=== PATIENT | female | born 1955 | race African-American/Black ===

== ENCOUNTER 2021-04-05 08:48 | Outpatient (CLI) | payer MEDICARE | END 2021-04-05 08:49 | disposition home or self-care (01) | LOC: CSHCT 08:48 | PROVIDERS: ATTEND Internal Medicine Hematology & Oncology | DX: C25.4 Malignant neoplasm of endocrine pancreas (principal); C17.0 Malignant neoplasm of duodenum; R93.2 Abnormal findings on diagnostic imaging of liver and biliary tract; K63.89 Other specified diseases of intestine; R59.0 Localized enlarged lymph nodes; K86.81 Exocrine pancreatic insufficiency | CPT/HCPCS: 71260; 74177; 82565 ==

== ENCOUNTER 2021-07-18 09:54 | Outpatient (CLI) | payer MEDICARE | END 2021-07-18 09:55 | disposition home or self-care (01) | LOC: CSHCT 09:54 | PROVIDERS: ATTEND Internal Medicine Hematology & Oncology | DX: C25.4 Malignant neoplasm of endocrine pancreas (principal); C17.0 Malignant neoplasm of duodenum; K63.89 Other specified diseases of intestine; K31.89 Other diseases of stomach and duodenum | CPT/HCPCS: 74177; 82565 ==

== ENCOUNTER 2021-07-23 12:48 | Emergency (ER) | payer MEDICARE ==
[2021-07-23] MEDS ORDERED: Ondansetron PF 4 MG/2 ML Vial ONE (15:04)
[2021-07-23] MEDS ORDERED: Morphine 4 MG/ML VIAL ONE (15:04)
== END 2021-07-23 16:45 | disposition home or self-care (01) ==
LOC: CSHERS 12:48
DX: M25.511 Pain in right shoulder (principal); E11.9 Type 2 diabetes mellitus without complications; K21.9 Gastro-esophageal reflux disease without esophagitis; I10 Essential (primary) hypertension; F17.210 Nicotine dependence, cigarettes, uncomplicated; Z79.899 Other long term (current) drug therapy
CPT/HCPCS: 71045; 84484; 93005; 96374; 96375; J2270; J2405

== ENCOUNTER 2022-01-10 11:02 | Outpatient (CLI) | payer MEDICARE | END 2022-01-10 11:03 | disposition home or self-care (01) | LOC: CSHCT 11:02 | PROVIDERS: ATTEND Internal Medicine Hematology & Oncology | DX: C25.4 Malignant neoplasm of endocrine pancreas (principal); C17.0 Malignant neoplasm of duodenum | CPT/HCPCS: 71260; 74177; 82565 ==

== ENCOUNTER 2022-10-03 09:25 | Outpatient (CLI) | payer MEDICARE ==
[~2022-10-03 09:25] MED LIST: Iopamidol 300 61% 100 ML VIAL FS ONE
== END 2022-10-03 09:26 | disposition home or self-care (01) ==
LOC: CSHCT 09:25
PROVIDERS: ATTEND Internal Medicine Hematology & Oncology
DX: C25.4 Malignant neoplasm of endocrine pancreas (principal); C17.0 Malignant neoplasm of duodenum
CPT/HCPCS: 71260; 74177; 82565

== ENCOUNTER 2022-12-17 20:01 | Emergency (ER) | payer MEDICARE ==
[2022-12-17] MEDS ORDERED: Metoclopramide HCl 10 MG/2 ML VIAL ONE (21:21)
[2022-12-17] MEDS ORDERED: diphenhydrAMINE 50 MG/ML VIAL ONE (21:21)
[2022-12-17 21:27] LABS: #Eosinphils 0.1 10x3/uL (0.0-0.5); #Monocytes 0.5 10x3/uL (0.0-1.1); #Neutrophils 6.2 10x3/uL (1.5-8.4); %Basophils 0.3 % (0.0-2.0); %Eosinophils 0.5 % (0.0-6.0); %Lymphocytes 25.8 % (18.0-47.0); %Monocytes 5.9 % (0.0-10.0); %Neutrophils 67.3 % (40.0-75.0); Mean Corpuscular Hemoglobin 28.2 pg (27.0-33.0); Mean Corpuscular Volume 83.1 fl (81.6-98.3); Mean Platelet Volume 11.9 fl (7.4-10.4); Platelet Count 164 10x3/uL (150-450); RBC Distribution Width 13.6 % (11.5-14.5); Red Blood Cell (RBC) Count 4.25 10x6/uL (3.90-5.03); White Blood Cell (WBC) Count 9.2 10x3/uL (3.5-10.5)
[2022-12-17 21:43] LABS: Bilirubin Neg (Negative); Blood, Urine 10 (Negative); Clarity Clear (Clear); Glucose, Urine (Dipstick) Normal (Negative); Ketone, Urine Negative (Negative); Leukocyte 25 (Negative); Nitrite Negative (Negative); Protein, Urine (Dipstick) 30 mg/dl (Neg-Trace)
[2022-12-17 21:48] LABS: ALT (SGPT) Less than 6 U/L (8-55); AST (SGOT) 12 U/L (5-34); Albumin 3.8 g/dL (3.4-4.8); Alkaline Phosphatase 61 U/L (40-110); Anion Gap 12 mmol/L (10-20); BUN (Urea Nitrogen) 21 mg/dL (9.8-20.1); Bilirubin, Total 1.1 mg/dL (0.2-1.2); Calc. Creatinine Clearance 0 mL/min (70-130); Calcium 10.3 mg/dL (7.8-10.44); Carbon Dioxide 25 mmol/L (23-31); Chloride 104 mmol/L (98-107); Estimated GFR 27; Globulin 2.8 g/dL (2.4-3.5); Glucose 171 mg/dL (80-115); Magnesium 1.6 mg/dL (1.6-2.6); Protein, Total 6.6 g/dL (5.8-8.1); Sodium 138 mmol/L (136-145)
[2022-12-17 21:50] LABS: Bacteria/HPF 1+ HPF (None Seen)
[2022-12-17] MEDS ORDERED: Cephalexin 250 MG CAP ONE (23:01)
== END 2022-12-17 23:18 | disposition home or self-care (01) ==
LOC: CSHERS 20:01
DX: N17.9 Acute kidney failure, unspecified (principal); N39.0 Urinary tract infection, site not specified; I10 Essential (primary) hypertension; F17.210 Nicotine dependence, cigarettes, uncomplicated
CPT/HCPCS: 36415; 70450; 80053; 81003; 81015; 83735; 85025; 87086; 96365; 96375; J1200; J2765

== ENCOUNTER 2023-11-10 13:49 | Emergency (ER) | payer MEDICARE | END 2023-11-10 15:13 | disposition home or self-care (01) | LOC: CSHERS 13:49 | DX: H93.13 Tinnitus, bilateral (principal); I10 Essential (primary) hypertension; F17.210 Nicotine dependence, cigarettes, uncomplicated | CPT/HCPCS: 99283 ==

== ENCOUNTER 2023-11-13 11:21 | Emergency (ER) | payer MEDICARE | END 2023-11-13 12:23 | disposition home or self-care (01) | LOC: CSHERS 11:21 | DX: H93.11 Tinnitus, right ear (principal); H92.01 Otalgia, right ear; F17.210 Nicotine dependence, cigarettes, uncomplicated; I10 Essential (primary) hypertension | CPT/HCPCS: 99282 ==